=== PATIENT | male | born 1975 | race Caucasian/White ===

== ENCOUNTER 2016-08-31 15:52 | Emergency (ER) | payer OTHER ==
[~2016-08-31 15:52] MED LIST: ARMOUR THYRO15 MG PO; CYMBALTA30 PO; PERCOCET1 TA4 PO; ZANAFLEX 4 MG TA4 MG PO
== END 2016-08-31 16:02 | disposition home or self-care (01) ==
LOC: ER 15:52
DX: M54.5 Low back pain (principal); G89.29 Other chronic pain; Z79.899 Other long term (current) drug therapy
CPT/HCPCS: 72100; 96372; 99283; J1170; J1885